=== PATIENT | male | born 1990 | race African-American/Black ===

== ENCOUNTER 2017-11-11 18:29 | Emergency (ER) | payer OTHER ==
[~2017-11-11] VITALS: Ht 188 cm; Wt 84.8 kg
[~2017-11-11 18:29] MED LIST: ARIP15TA3 PO; QUET50TA PO
[2017-11-11 18:35] VITALS: BP 134/79
[2017-11-11] MEDS ORDERED: AZITHROMYCIN 250 MG TABLET PO ONE (19:30)
[2017-11-11] MEDS ORDERED: CEFTRIAXONE 500 MG VIAL IM ONE (19:30)
[2017-11-11 19:37] LABS: APPEARANCE,URINE Cloudy (CLEAR); BILIRUBIN,URINE SMALL (NEGATIVE); BLOOD, URINE Moderate Ery/uL (NEGATIVE); COLOR,URINE Amber (YELLOW); KETONES,URINE Trace (NEGATIVE); LEUKOCYTE ESTERASE ,URINE Small (NEGATIVE); NITRITE, URINE Negative (NEGATIVE); PROTEIN,URINE 100 mg/dl (NEGATIVE); UGLUCOSE Negative (NEGATIVE)
[2017-11-11] MEDS ORDERED: CEFTRIAXONE 500 MG VIAL ONE (19:39)
[2017-11-11] MEDS ORDERED: LIDOCAINE /MPF 1% VIAL 5 ML VIAL ONE (19:39)
[2017-11-11] MEDS ORDERED: AZITHROMYCIN 250 MG TABLET ONE (19:40)
[2017-11-11 19:51] LABS: BACTERIA,URINE Few /HPF (None Seen); MUCUS,URINE Moderate /LPF (None Seen); RBC,URINE 21-50 /HPF (0-2); SQUAMOUS EPITHELIAL CELL,UR Few /HPF (None Seen)
== END 2017-11-11 19:43 | disposition home or self-care (01) ==
LOC: ER 18:36
DX: R36.9 Urethral discharge, unspecified (principal); F32.9 Major depressive disorder, single episode, unspecified; F10.20 Alcohol dependence, uncomplicated; Y90.9 Presence of alcohol in blood, level not specified
CPT/HCPCS: 81001; 87086; 96372; 99284; A4606; J0696; J3490; Z7610; 81000-TC